=== PATIENT | female | born 1985 | race Caucasian/White ===

== ENCOUNTER 2016-03-28 00:20 | Emergency (ER) | payer MEDICAID ==
[~2016-03-28] VITALS: Ht 160 cm; Wt 70.5 kg
[~2016-03-28 00:20] MED LIST: PRENAT PO
[2016-03-28 00:29] VITALS: Ht 160 cm; Wt 70.5 kg
[2016-03-28] MEDS ORDERED: HYDROCODONE/APAP (10/325) TAB PO ONE (01:00)
--- NOTE | 2016-03-28 01:06 | ERD ---
ER Documentation Chief Complaint Date/Time DATE: 03/28/16 TIME: 01:05 Chief Complaint lower back pain for 3 days HPI 30-year-old female presents here in emergency department for complaint of lower back pain for 2 months now, within the last 3 days. Patient had a history of epidural injections during labor, started to have the pain afterwards. It got worse in the last 3 days. Described the pain as sharp pain, 6/10 scale, radiates from the lower back to the lower extremities. Patient's pain is worse upon movement. Patient did not take any medications for pain. Patient denies any direct trauma on affected area. Patient denies any incontinence. Patient denies hematuria or dysuria. Patient has any fever or chills. Patient denies any abdominal pain. ROS All systems reviewed and are negative except as per history of present illness. Medications Home Meds Reported Medications Multivit/Min/Fol Ac/Iron/Pren* ( S*) 1 Tab Tab, 1 TAB PO DAILY, TAB 12/18/15 Allergies Allergies: Coded Allergies: No Known Allergy (Unverified , 12/31/15) PMhx/Soc Medical and Surgical Hx: pt denies Medical Hx History of Surgery: Yes (c/s x 2) Anesthesia Reaction: No Hx Alcohol Use: No Hx Substance Use: No Hx Tobacco Use: No Smoking Status: Never smoker FmHx Family History: No coronary disease, No diabetes, No other Physical Exam Vitals Vital Signs Date Time Temp Pulse Resp B/P Pulse Ox O2 Delivery O2 Flow Rate FiO2 03/28/16 00:29 96.9 71 20 114/81 97 Physical Exam GENERAL: The patient is well developed and appropriate for usual state of health, in no apparent distress. CHEST: Clear to auscultation bilaterally. There are no rales, wheezes or rhonchi. HEART: Regular rate and rhythm. No murmurs, clicks, rubs or gallops. No S3 or S4. ABDOMEN: Soft, nontender and nondistended. Good bowel sounds. No rebound or guarding. No gross peritonitis. No gross organomegaly or masses. No Desai sign or McBurney point tenderness. BACK: No midline or flank tenderness. Muscle spasms noted in the paraspinal aspect of the lumbar spine. EXTREMITIES: Equal pulses bilaterally. There is no peripheral clubbing, cyanosis or edema. No focal swelling or erythema. Full range of motion. Grossly neurovascularly intact. NEURO: Alert and oriented. Cranial nerves 2-12 intact. Motor strength in all 4 extremities with 5/5 strength. Sensation grossly intact. Normal speech and gait. SKIN: There is no apparent rash or petechia. The skin is warm and dry. HEMATOLOGIC AND LYMPHATIC: There is no evidence of excessive bruising or lymphedema. No gross cervical, axillary, or inguinal lymphadenopathy. Results 24 hrs Laboratory Tests Test 03/28/16 01:50 Bedside Urine Blood Negative Bedside Urine Glucose (UA) Negative Bedside Urine Ketones (LAB) Negative Bedside Urine Leukocyte Esterase (L Negative Bedside Urine Nitrite (LAB) Negative Bedside Urine Protein (LAB) Negative Bedside Urine pH (LAB) 6.0 Current Medications Medications (Trade) Dose Ordered Sig/Ayana Route PRN Reason Start Time Stop Time Status Last Admin Dose Admin Acetaminophen/ Hydrocodone Bitart (Frederick (10/325)) 1 tab ONCE ONCE PO 03/28/16 01:00 03/28/16 01:01 DC 03/28/16 01:05 Patient was given medication for pain here in emergency department, after treatment, patient verbalized feeling much better. Patient's pain is improved. PROCEDURE: CT Lumbar Spine. CLINICAL INDICATION: Back pain TECHNIQUE: Noncontrast CT of the lumbar spine was performed with multiplanar reformatted images generated from the axial acquired data. The administered radiation dose was CTDI vol = 15.3 mGy, DLP = 378 mGy-cm. COMPARISON: There are no similar studies submitted for comparison. FINDINGS: SCOLIOSIS: No significant scoliosis. LORDOSIS: Within normal limits. VERTEBRAL BODY HEIGHTS: Maintained. ALLIGNMENT: Within normal limits. OSSEOUS STRUCTURES: There is no destructive osseous lesion.There is no acute fracture. There is spondylolysis of L5 bilaterally. DISCS: The discs are normal in height. T12-L1 : There is no disc herniation, spinal canal, or foraminal stenosis. L1-L2 : There is no disc herniation, spinal canal, or foraminal stenosis. L2-L3 : There is no disc herniation, spinal canal, or foraminal stenosis. L3-L4 : There is no disc herniation, spinal canal, or foraminal stenosis. L4-L5 : There is a small central disk protrusion with mild spinal canal narrowing. L5-S1 : There is no disc herniation, spinal canal, or foraminal stenosis. SACRUM: The sacroiliac joints are intact. OTHER: The aorta is normal in caliber. IMPRESSION: No acute fracture. Bilateral spondylolysis at L5 without spondylolisthesis. Small central disk protrusion at L4-5 without significant spinal canal narrowing. RPTAT: HIKT .Juan Feliciano MD, Date Time Electronically viewed and signed by .Juan Feliciano MD, on 03/28/2016 03:35 .T/ CC: ELVIA RANDLE CASTING OPERATOR Procedures/MDM Medical Decision Making: Patient's pain is most likely consistent with a back pain caused by degenerative disc this is, possible sciatica. There is no suspicion for neurovascular compromise. Patient has intact sensation and circulation of the distal extremities. There is low suspicion for septic arthritis. Patient does not have any fever. Radiology exams of the affected area does not show any fracture or dislocation. Disposition: Home. Patient is given prescription for ibuprofen for mild to moderate pain, Frederick for severe pain, Flexeril for muscle spasm. Patient was advised to avoid heavy lifting, rest. Patient was advised that if symptoms are worse, numbness, tingling, high fever, unable to move joint, worsening symptoms , to return to emergency department immediately. Otherwise, patient is advised to follow up with the primary care doctor in 5-7 days for reevaluation of symptoms. Departure Diagnosis: Primary Impression: Back pain Back pain location: low back pain Chronicity: acute Back pain laterality: bilateral Sciatica presence: with sciatica Sciatica laterality: bilateral sciatica Qualified Code: M54.42 - Acute bilateral low back pain with bilateral sciatica Additional Impression: Degenerative disc disease Spinal region: lumbosacral Qualified Code: M51.37 - Degeneration of intervertebral disc of lumbosacral region Condition: Stable Patient Instructions: Back Pain W/ Sciatica, Degenerative Disk Disease Additional Instructions: Patient is given prescription for ibuprofen for mild to moderate pain, Frederick for severe pain, Flexeril for muscle spasm. Patient was advised to avoid heavy lifting, rest. Patient was advised that if symptoms are worse, numbness, tingling, high fever, unable to move joint, worsening symptoms, to return to emergency department immediately. Otherwise, patient is advised to follow up with the primary care doctor in 5-7 days for reevaluation of symptoms. ELVIA RANDLE NP Mar 28, 2016 01:06
[2016-03-28 01:50] LABS: URINE BLOOD (Dip) POC Negative (NEGATIVE)
--- NOTE | 2016-03-28 03:35 | RADRPT ---
PROCEDURE: CT Lumbar Spine. CLINICAL INDICATION: Back pain TECHNIQUE: Noncontrast CT of the lumbar spine was performed with multiplanar reformatted images gen erated from the axial acquired data. The administered radiation dose was CTDI vol = 15.3 mGy, DLP = 378 mGy-cm. COMPARISON: There are no similar studies submitted for comparison. FINDINGS: SCOLIOSIS: No significant scoliosis. LORDOSIS: Within normal limits. VERTEBRAL BODY HEIGHTS: Maintained. ALLIGNMENT: Within normal limits. OSSEOUS STRUCTURES: There is no destructive osseous lesion.There is no acute fracture. There is spon dylolysis of L5 bilaterally. DISCS: The discs are normal in height. T12-L1 : There is no disc herniation, spinal canal, or foraminal stenosis. L1-L2 : There is no disc herniation, spinal canal, or foraminal stenosis. L2-L3 : There is no disc herniation, spinal canal, or foraminal stenosis. L3-L4 : There is no disc herniation, spinal canal, or foraminal stenosis. L4-L5 : There is a small central disk protrusion with mild spinal canal narrowing. L5-S1 : There is no disc herniation, spinal canal, or foraminal stenosis. SACRUM: The sacroiliac joints are intact. OTHER: The aorta is normal in caliber. IMPRESSION: No acute fracture. Bilateral spondylolysis at L5 without spondylolisthesis. Small central disk protrusion at L4-5 without significant spinal canal narrowing. RPTAT: HIKT .Juan Feliciano MD, MD Date Time Electronically viewed and signed by .Juan Feliciano MD, MD on 03/28/2016 03:35 .T/
[2016-03-28] MEDS ORDERED: IBUP-1542 PO (03:41)
[2016-03-28] MEDS ORDERED: CYCL-319 PO (03:41)
[2016-03-28] MEDS ORDERED: HYDR-906 PO (03:41)
[2016-03-28 04:27] VITALS: BP 115/73; PULSE 98; RESP 18; TEMP 97.9
== END 2016-03-28 04:28 | disposition home or self-care (01) ==
LOC: FTE 00:20
DX: M51.17 Intervertebral disc disorders with radiculopathy, lumbosacral region (principal)
CPT/HCPCS: 72131; 81003; Z7502; Z7610